=== PATIENT | male | born 1995 | race Caucasian/White ===

== ENCOUNTER 2016-09-01 19:23 | Emergency (ER) | payer MEDICAID, OTHER ==
[~2016-09-01] VITALS: Ht 177.8 cm; Wt 94.5 kg
[~2016-09-01 19:23] MED LIST: FAMO-96 PO; IBUP-1542 PO
[2016-09-01 19:25] VITALS: Ht 177.8 cm; Wt 94.5 kg
[2016-09-01] MEDS ORDERED: LIDOCAINE 2%/EPI MPF (SDV) 20 ML VIAL INJ STA (19:54)
[2016-09-01] MEDS ORDERED: SULF1TAB31 PO (20:10)
--- NOTE | 2016-09-01 20:15 | ERD ---
ER Documentation Chief Complaint Date/Time DATE: 09/01/16 TIME: 20:13 Chief Complaint abscess sacral area HPI Patient is a 20-year-old male who presents with an area of redness and swelling to his lower back that he has had for 2 days.. He denies any fever. He denies any bleeding or drainage. Denies any trauma. ROS All systems reviewed and are negative except as per history of present illness. Medications Home Meds Active Scripts Sulfamethoxazole/Trimethoprim* (Bactrim Ds* Tablet) 1 Each Tablet, 1 TAB PO BID , #14 TAB Prov:MERCEDES GONGORA PA-C 09/01/16 Ibuprofen* (Motrin*) 600 Mg Tab, 600 MG PO Q6, #20 TAB Prov:EUSEBIA MCKEON PA-C 06/16/15 Famotidine* (Pepcid*) 20 Mg Tablet, 20 MG PO BID, #30 TAB Prov:ELAN GARCIA PA-C 05/26/15 Allergies Allergies: Coded Allergies: No Known Allergies (Verified Allergy, Unknown, 09/01/16) PMhx/Soc Medical and Surgical Hx: pt denies Surgical Hx History of Surgery: No Anesthesia Reaction: No Hx Neurological Disorder: No Hx Respiratory Disorders: No Hx Cardiac Disorders: No Hx Psychiatric Problems: No Hx Miscellaneous Medical Probl: Yes (BULIMIA) Hx Alcohol Use: No Hx Substance Use: No Hx Tobacco Use: No Smoking Status: Never smoker FmHx Family History: No diabetes Physical Exam Vitals Vital Signs Date Time Temp Pulse Resp B/P Pulse Ox O2 Delivery O2 Flow Rate FiO2 09/01/16 19:25 98.2 79 20 131/79 100 Physical Exam Const: [] Head: Atraumatic Neck: Full range of motion..~ No meningismus. Resp: Clear to auscultation bilaterally Cardio: Regular rate and rhythm, no murmurs Abd: Soft, non tender, non distended. Normal bowel sounds Skin: Small localized abscess on the lower lumbar spine, no bleeding or drainage approximately 1 cm in diameter Results 24 hrs Current Medications Medications (Trade) Dose Ordered Sig/Jenna Route PRN Reason Start Time Stop Time Status Last Admin Dose Admin Lidocaine/ Epinephrine (Xylocaine 2%/ Epi Mpf(Sdv)) 20 ml ONCE STAT INJ 09/01/16 19:54 09/01/16 19:55 DC Procedures/MDM Patient has small abscess formation on his lower back. His vital signs are normal. Area was prepped with Betadine and then 1% lidocaine was used to anesthetize the site and then a small incision using 11 blade was made and copious amounts of pus was drained. Patient tolerated the procedure well. He was placed on Bactrim and his wound was dressed and bandaged. Recommended this patient follow up with her primary care doctor within 48 hours or return to the emergency room for any worsening of symptoms. However this time I do believe there is suitable for outpatient management. I answered all their questions and they agreed with the plan and were discharged home. Departure Diagnosis: Primary Impression: Abscess Condition: Stable Patient Instructions: Abscess, Incision And Drainage Additional Instructions: Call your primary care doctor TOMORROW for an appointment during the next 1-2 days.See the doctor sooner or return here if your condition worsens before your appointment time. MERCEDES GONGORA PA-C Sep 01, 2016 20:15
[2016-09-01 20:19] VITALS: BP 140/64; PULSE 80; RESP 22; TEMP 98.6
== END 2016-09-01 20:23 | disposition home or self-care (01) ==
LOC: E/R 19:23
DX: L02.212 Cutaneous abscess of back [any part, except buttock and flank] (principal)
CPT/HCPCS: 10060; Z7502; Z7610